=== PATIENT | male | born 1975 | race Caucasian/White ===

== ENCOUNTER → 2018-12-27 | Outpatient (CLI) | payer OTHER ==
[2018-12-27 09:18] LABS: URINE BILIRUBIN NEGATIVE (Negative); URINE BLOOD NEGATIVE (Negative); URINE CLARITY CLEAR; URINE COLOR YELLOW; URINE GLUCOSE-RANDOM 3+ (Negative); URINE KETONES NEGATIVE (Negative); URINE LEUKOCYTES NEGATIVE (Negative); URINE NITRITE NEGATIVE (Negative); URINE PROTEIN NEGATIVE (Negative); URINE SPECIFIC GRAVITY 1.015 (1.005-1.030); URINE UROBILINOGEN 0.2 E.U./dl (0.2-1.0)
[2018-12-27 09:55] LABS: ALBUMIN 3.9 g/dL (3.4-5.0); CALCIUM 8.6 mg/dL (8.5-10.1); CREATININE 0.8 mg/dL (0.6-1.3); POTASSIUM 3.8 mmol/L (3.5-5.1); TOTAL BILIRUBIN 0.5 mg/dL (<0.1-1.0)
[2018-12-27 10:32] LABS: TOTAL PROTEIN 6.8 g/dL (6.4-8.2)
== END ==
LOC: M.LAB 08:46
PROVIDERS: Orthopaedic Surgery
DX: E11.9 Type 2 diabetes mellitus without complications (principal)